=== PATIENT | female | born 1970 | race African-American/Black ===

== ENCOUNTER 2017-03-15 12:30 | Outpatient (CLI) | payer BC, OTHER | END 2017-03-15 12:31 | disposition home or self-care (01) | LOC: BICMAMMO 12:30 | PROVIDERS: ATTEND Obstetrics & Gynecology | DX: Z12.31 Encounter for screening mammogram for malignant neoplasm of breast (principal) | CPT/HCPCS: 77063 ==

== ENCOUNTER 2018-03-17 14:50 | Outpatient (CLI) | payer OTHER ==
--- NOTE | 2018-03-17 18:16 | ULT ---
THYROID ULTRASOUND: HISTORY: Thyroid nodule. COMPARISON: None. TECHNIQUE: Sagittal and transverse imaging of the thyroid gland is performed. FINDINGS: Isthmus is removed. The right thyroid lobe is removed. The left thyroid lobe measures 1.8 x 5.3 x 1.4 cm. There is a simple cyst lesion in the lower pole of the left thyroid lobe. There is a complex partial ly solid and cystic lesion in the mid pole left thyroid lobe measuring 0.9 x 0.5 x 0.6 cm. Slightly complex predominantly cystic lesion is also noted in the mid pole left thyroid lobe with a septation. IMPRESSION: Solid and cystic nodule in the left thyroid lobe as described above. TIRADS level TR4. Followup abhinav ging in 1 year. POS: [facility]
== END 2018-03-17 14:51 | disposition home or self-care (01) ==
LOC: BICULT 14:50
PROVIDERS: ATTEND Otolaryngology Plastic Surgery within the Head & Neck
DX: E04.1 Nontoxic single thyroid nodule (principal)
CPT/HCPCS: 76536

== ENCOUNTER 2018-03-17 15:04 | Outpatient (CLI) | payer OTHER | END 2018-03-17 15:05 | disposition home or self-care (01) | LOC: BICMAMMO 15:04 | PROVIDERS: ATTEND Obstetrics & Gynecology | DX: Z12.31 Encounter for screening mammogram for malignant neoplasm of breast (principal) | CPT/HCPCS: 77063; 77067 ==

== ENCOUNTER 2019-03-20 12:33 | Outpatient (CLI) | payer OTHER ==
--- NOTE | 2019-03-20 13:53 | ULT ---
US Thyroid STANDARD History: Thyroid nodule Comparison: Thyroid ultrasound prior year Findings: Multiple bilateral colloid cysts. No abnormal solid nodule. Spongiform nodule left lobe of the thyroid. No interval size increase of the thyroid nodules Prior right thyroidectomy. Impression: No significant with size increase of the thyroid nodules. Previously described complex pa rtially solid and cystic nodule in the mid to superior left lobe has not grown.
== END 2019-03-20 12:34 | disposition home or self-care (01) ==
LOC: BICULT 12:33
PROVIDERS: ATTEND Otolaryngology Plastic Surgery within the Head & Neck
DX: E04.2 Nontoxic multinodular goiter (principal)
CPT/HCPCS: 76536

== ENCOUNTER 2019-06-16 14:12 | Outpatient (CLI) | payer OTHER ==
--- NOTE | 2019-06-16 15:21 | MMO ---
Bilateral MAMMO Bilat Screen [facility]. CLINICAL HISTORY: Patient is 48 years old and is seen for screening. The patient has no family history of breast cancer. The patient has no personal history of cancer. VIEWS: The views performed were: bilateral craniocaudal with tomosynthesis and bilateral mediolateral oblique with tomosynthesis. FILMS COMPARED: The present examination has been compared to prior imaging studies performed at [facility] on 03/12/2015, 03/14/2016, 03/15/2017 and 03/17/2018. This study has been interpreted with the assistance of computer-aided detection. MAMMOGRAM FINDINGS: The breasts are heterogeneously dense, which could obscure a lesion on mammography. There are no suspicious masses, suspicious calcifications, or new areas of architectural distortion. IMPRESSION: THERE IS NO MAMMOGRAPHIC EVIDENCE OF MALIGNANCY. A ROUTINE FOLLOW-UP MAMMOGRAM IN 1 YEAR IS RECOMMENDED. THE RESULTS OF THIS EXAM WERE SENT TO THE PATIENT. ACR BI-RADS Category 1 - Negative MAMMOGRAPHY NOTE: 1. A negative mammogram report should not delay a biopsy if a dominant of clinically suspicious mass is present. 2. Approximately 10% to 15% of breast cancers are not detected by mammography. 3. Adenosis and dense breasts may obscure an underlying neoplasm. Reported by: DOLORES PRESLEY MD Electonically Signed: [id number]
== END 2019-06-16 14:13 | disposition home or self-care (01) ==
LOC: BICMAMMO 14:12
PROVIDERS: ATTEND Obstetrics & Gynecology
DX: Z12.31 Encounter for screening mammogram for malignant neoplasm of breast (principal)
CPT/HCPCS: 77063; 77067

== ENCOUNTER 2020-05-19 15:23 | Outpatient (CLI) | payer OTHER | END 2020-05-19 15:24 | disposition home or self-care (01) | LOC: BICMAMMO 15:23 | PROVIDERS: ATTEND Internal Medicine Rheumatology | DX: M85.80 Other specified disorders of bone density and structure, unspecified site (principal) | CPT/HCPCS: 77080 ==